=== PATIENT | female | born 1965 | race Caucasian/White ===

== ENCOUNTER 2017-03-08 10:29 | Emergency (ER) | payer OTHER, BC ==
[2017-03-08 10:34] VITALS: BMI 30.7
[2017-03-08 10:36] VITALS: BP 161/91; PULSE 79; RESP 17; TEMP 98.3; O2SAT 99
--- NOTE | 2017-03-08 11:12 | ED PDOC ---
Upper Extremity Pain/Injury Time Seen by Provider: 03/08/17 10:35 Chief Complaint (Nursing): Upper Extremity Problem/Injury Chief Complaint (Provider): Right shoulder pain, 1-2 week, worse x 2 days History Per: Patient History/Exam Limitations: no limitations Onset/Duration Of Symptoms: Days Current Symptoms Are (Timing): Still Present Quality: Sharp (with movements across body and over head ) Exacerbating Factor(s): Strenuous Use Of Affected Area, Movement Additional Complaint(s): PT has not been taking medications for pain at home. No numbness/tingling. Pt states she is having trouble sleeping because she can't sleep on that side nad has difficulty moving. Past Medical History Reviewed: Historical Data, Nursing Documentation, Vital Signs Vital Signs: Last Vital Signs Temp 98.3 F 03/08/17 10:34 Pulse 79 03/08/17 10:34 Resp 17 03/08/17 10:34 BP 161/91 H 03/08/17 10:34 Pulse Ox 99 03/08/17 10:34 - Medical History PMH: Diabetes, HTN - Surgical History Surgical History: No Surg Hx - Family History Family History: States: No Known Family Hx - Living Arrangements Living Arrangements: With Family - Social History Current smoker - smoking cessation education provided: No - Home Medications Home Medications: Ambulatory Orders Medication Instructions Recorded Acetaminophen/Oxycodone Hydr 1 tab PO Q6H #0 10 10/22/13 [Percocet 325 mg-5 mg] Ciprofloxacin HCl [Cipro] 500 mg PO BID #20 tab 10/22/13 Tamsulosin [Flomax] 0.4 mg PO DAILY #6 cap 10/22/13 Acetaminophen/Hydrocodone Bi 1 tab PO QID PRN #10 tab 10/11/14 [Vicodin 300 mg-5 mg] Clindamycin [Cleocin] 300 mg PO QID 10 Days cap 10/11/14 Naproxen [Naprosyn] 500 mg PO Q12H #20 tab 02/20/15 Sulfamethoxazole/Trimethoprim 1 tab PO BID #20 tab 02/20/15 [Bactrim DS 800 mg-160 mg] Naproxen [Naprosyn] 500 mg PO BID PRN #20 tablet 03/08/17 - Allergies Allergies/Adverse Reactions: Allergies Allergy/AdvReac Type Severity Reaction Status Date / Time No Known Allergies Allergy Verified 03/08/17 10:42 Review of Systems ROS Statement: Except As Marked, All Systems Reviewed And Found Negative Constitutional: Negative for: Fever, Chills Cardiovascular: Negative for: Chest Pain Respiratory: Negative for: Cough, Shortness of Breath Musculoskeletal: Positive for: Shoulder Pain (Right ) Physical Exam - Reviewed Nursing Documentation Reviewed: Yes Vital Signs Reviewed: Yes - Physical Exam Appears: Positive for: Well, Non-toxic, No Acute Distress Head Exam: Positive for: ATRAUMATIC, NORMAL INSPECTION, NORMOCEPHALIC Skin: Positive for: Normal Color, Warm, DRY Eye Exam: Positive for: Normal appearance ENT: Positive for: Normal ENT Inspection Neck: Positive for: Normal. Negative for: Pain On Movement Of Neck Respiratory: Negative for: Accessory Muscle Use, Respiratory Distress Pulses-Radial (R): 2+ Back: Positive for: Normal Inspection Extremity: Negative for: Normal ROM (Limited extension, internal rotation), Tenderness Neurologic/Psych: Positive for: Alert, Oriented - ECG O2 Sat by Pulse Oximetry: 99 Pulse Ox Interpretation: Normal Medical Decision Making Medical Decision Making: No acute fracture or dislocation Disposition - Clinical Impression Clinical Impression: Tendonitis of shoulder, right - Patient ED Disposition Is Patient to be Admitted: No Counseled Patient/Family Regarding: Diagnosis, Need For Followup, Rx Given - Disposition Referrals: Malik Hinds III, MD [Staff Provider] - Disposition: Routine/Home Disposition Time: 12:39 Condition: GOOD Prescriptions: Naproxen [Naprosyn] 500 mg PO BID PRN #20 tablet PRN Reason: Pain Instructions: Tendinitis (ED) Forms: [email or web address] [facility] ([place]), [facility] ED School/Work Excuse
[2017-03-08] MEDS ORDERED: Naproxen 500 MG TAB PO STA (11:28)
[2017-03-08] MEDS ORDERED: Naproxen 500 MG TAB PO ONE (11:38)
--- NOTE | 2017-03-08 12:52 | RAD ---
PROCEDURE: Radiographs of the Right Shoulder HISTORY: right shoulder pain, 2 days COMPARISON: No prior. FINDINGS: BONES: Normal. No fracture. JOINTS: Normal. Glenohumeral and acromioclavicular joints preserved. No osteoarthritis. SOFT TISSUES: Normal. OTHER FINDINGS: None. IMPRESSION: Unremarkable radiographs of the right shoulder.
== END 2017-03-08 12:45 | disposition home or self-care (01) ==
LOC: H.ER 10:29
DX: M25.511 Pain in right shoulder (principal); E11.9 Type 2 diabetes mellitus without complications; I10 Essential (primary) hypertension; M75.91 Shoulder lesion, unspecified, right shoulder

== ENCOUNTER 2017-08-20 13:37 | Emergency (ER) | payer OTHER ==
[2017-08-20 13:37] VITALS: BMI 30.7
[2017-08-20 13:42] VITALS: BP 105/72; PULSE 87; RESP 16; TEMP 97.6; O2SAT 99
[2017-08-20] MEDS ORDERED: Tdap Vaccine 0.5 ml Vial (10-64 yrs) IM ONE ×2 (13:53→14:06)
--- NOTE | 2017-08-20 14:08 | ED PDOC ---
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 She reports that while walking in the door to a room, she got caught on a chair , hit her upper back on the edge of the door, and then fell on her right knee, sustaining an abrasion. Patient states that a nurse on the floor advised her to make sure she's up to date on her tetanus shot. PMD: Joaquín Mohan Past Medical History Reviewed: Historical Data, Nursing Documentation, Vital Signs Vital Signs: Last Vital Signs Temp 97.6 F 08/20/17 13:40 Pulse 87 08/20/17 13:40 Resp 16 08/20/17 13:40 BP 105/72 08/20/17 13:40 Pulse Ox 99 08/20/17 13:40 - Medical History PMH: Diabetes, HTN - Surgical History Surgical History: Hernia Repair Other surgeries: tummy tuck; left shoulder surgery - Family History Family History: States: Unknown Family Hx - Social History Ex-Smoker (has not smoked in the last 12 months): Yes Drugs: Denies - Immunization History Hx Tetanus Toxoid Vaccination: No - Home Medications Home Medications: Ambulatory Orders Medication Instructions Recorded Acetaminophen/Oxycodone Hydr 1 tab PO Q6H #0 10 10/22/13 [Percocet 325 mg-5 mg] Ciprofloxacin HCl [Cipro] 500 mg PO BID #20 tab 10/22/13 Tamsulosin [Flomax] 0.4 mg PO DAILY #6 cap 10/22/13 Acetaminophen/Hydrocodone Bi 1 tab PO QID PRN #10 tab 10/11/14 [Vicodin 300 mg-5 mg] Clindamycin [Cleocin] 300 mg PO QID 10 Days cap 10/11/14 Naproxen [Naprosyn] 500 mg PO Q12H #20 tab 02/20/15 Sulfamethoxazole/Trimethoprim 1 tab PO BID #20 tab 02/20/15 [Bactrim DS 800 mg-160 mg] Naproxen [Naprosyn] 500 mg PO BID PRN #20 tablet 03/08/17 - Allergies Allergies/Adverse Reactions: Allergies Allergy/AdvReac Type Severity Reaction Status Date / Time No Known Allergies Allergy Verified 08/20/17 13:40 Review of Systems ROS Statement: Except As Marked, All Systems Reviewed And Found Negative Musculoskeletal: Positive for: Back Pain (upper right), Leg Pain (right knee) Skin: Positive for: Other (abrasion to right knee) Physical Exam - Reviewed Nursing Documentation Reviewed: Yes Vital Signs Reviewed: Yes - Physical Exam Appears: Positive for: No Acute Distress Head Exam: Positive for: ATRAUMATIC, NORMOCEPHALIC Skin: Positive for: Normal Color, Warm, Dry Eye Exam: Positive for: Normal appearance ENT: Positive for: Normal ENT Inspection Neck: Positive for: Normal Cardiovascular/Chest: Positive for: Regular Rate, Rhythm. Negative for: Murmur Respiratory: Positive for: Normal Breath Sounds. Negative for: Accessory Muscle Use, Respiratory Distress Back: Positive for: Other (tenderness between spine and scapula of soft tissue, no ecchymosis) Extremity: Positive for: Normal ROM (of right knee and leg, ambulating on it), Other (abrasion to right knee). Negative for: Swelling (to right knee) Neurologic/Psych: Positive for: Alert, Oriented (x3). Negative for: Motor/ Sensory Deficits - ECG O2 Sat by Pulse Oximetry: 99 (RA) Pulse Ox Interpretation: Normal Medical Decision Making Medical Decision Making: Initial Impression: upper back and right knee pain s/p fall Time: 13:53 Initial Plan: --Tetanus 0.5ml IM Wound irrigated, antibiotic ointment and dressing applied. Scribe Attestation Documented by Lisa Tony acting as a scribe for Shoshana Wilks PA-C. Provider Attestation All medical record entries made by the Scribe were at my direction and personally dictated by me. I have reviewed the chart and agree that the record accurately reflects my personal performance of the history, physical exam, medical decision making, and the department course for this patient. I have also personally directed, reviewed, and agree with the discharge instructions and disposition. Disposition - Clinical Impression Clinical Impression: Knee abrasion, Upper back pain - Patient ED Disposition Is Patient to be Admitted: No Counseled Patient/Family Regarding: Diagnosis, Need For Followup - Disposition Referrals: Joaquín Mohan MD [Family Provider] - Disposition: Routine/Home Disposition Time: 14:25 Condition: STABLE Instructions: Skin Abrasions Forms: [facility] ([place])
== END 2017-08-20 14:32 | disposition home or self-care (01) ==
LOC: H.ER 13:37
DX: S80.211A Abrasion, right knee, initial encounter (principal); M54.9 Dorsalgia, unspecified; W19.XXXA Unspecified fall, initial encounter; Y99.0 Civilian activity done for income or pay; E11.9 Type 2 diabetes mellitus without complications; I10 Essential (primary) hypertension

== ENCOUNTER 2018-01-17 12:28 | Emergency (ER) | payer OTHER ==
[2018-01-17 12:28] VITALS: BMI 30.7
[2018-01-17 12:33] VITALS: RESP 16
[2018-01-17] MEDS ORDERED: Tdap Vaccine 0.5 ml Vial (10-64 yrs) IM ONE ×2 (13:20→13:25)
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
--- NOTE | 2018-01-17 15:10 | CT ---
Date of service: 01/17/2018 PROCEDURE: CT MAXILLOFACIAL BONES WITHOUT CONTRAST HISTORY: r/o fx COMPARISON: None available. TECHNIQUE: Contiguous axial CT images of the maxillofacial bones were obtained. Coronal and sagittal reformats were generated. Radiation dose: Total exam DLP = 1216.41 mGy-cm. This CT exam was performed using one or more of the following dose reduction techniques: Automated exposure control, adjustment of the mA and/or kV according to patient size, and/or use of iterative reconstruction technique. FINDINGS: NASAL BONES: Unremarkable. ORBITS: Unremarkable. PARANASAL SINUSES/ MASTOIDS: Clear. MAXILLA: Unremarkable. MANDIBLE/ TEMPOROMANDIBULAR JOINTS: Unremarkable. SKULL BASE: Unremarkable. TEMPORAL BONES: Middle ears and mastoid grossly unremarkable. OTHER FINDINGS: None. IMPRESSION: Unremarkable non contrast enhanced CT of the maxillofacial bones.
--- NOTE | 2018-01-17 16:24 | ED PDOC ---
HPI: Trauma/Fall - HPI Time Seen by Provider: 01/17/18 13:15 Chief Complaint (Nursing): Abnormal Skin Integrity Chief Complaint (Provider): Facial Laceration History Per: Patient History/Exam Limitations: no limitations Onset/Duration Of Symptoms: Hrs (two) Description Of Injury (Context): Pt suffered apparent vasovagal while pressing on the toilet, lost conscious - Fall Fall:Prior To Injury: Passed Out (Pt suffered apparent vasovagal while pressing on the toilet, lost consciousness and fell forward striking her face on the [facility] [place]. Pt suffered a 4-5 inch moerately deep laceration over the right eye and nose. Bleeding is undercontrol and the patient is hemodynamically stable) Past Medical History Reviewed: Historical Data, Nursing Documentation, Vital Signs Vital Signs: Last Vital Signs Temp 97.0 F L 01/17/18 12:30 Pulse 88 01/17/18 12:30 Resp 16 01/17/18 12:30 BP 128/82 01/17/18 12:30 Pulse Ox 100 01/17/18 12:30 - Medical History PMH: Diabetes, HTN - Surgical History Surgical History: Hernia Repair Denies: No Surg Hx Other surgeries: Pt had left shoulder surgery in the last two months of unknown origin - Family History Family History: States: Unknown Family Hx - Living Arrangements Living Arrangements: With Family - Immunization History Hx Tetanus Toxoid Vaccination: No - Home Medications Home Medications: Ambulatory Orders Medication Instructions Recorded Acetaminophen/Oxycodone Hydr 1 tab PO Q6H #0 10 10/22/13 [Percocet 325 mg-5 mg] Ciprofloxacin HCl [Cipro] 500 mg PO BID #20 tab 10/22/13 Tamsulosin [Flomax] 0.4 mg PO DAILY #6 cap 10/22/13 Acetaminophen/Hydrocodone Bi 1 tab PO QID PRN #10 tab 10/11/14 [Vicodin 300 mg-5 mg] Clindamycin [Cleocin] 300 mg PO QID 10 Days cap 10/11/14 Naproxen [Naprosyn] 500 mg PO Q12H #20 tab 02/20/15 Sulfamethoxazole/Trimethoprim 1 tab PO BID #20 tab 02/20/15 [Bactrim DS 800 mg-160 mg] Naproxen [Naprosyn] 500 mg PO BID PRN #20 tablet 03/08/17 Cephalexin [Keflex] 500 mg PO QID #40 capsule 01/17/18 - Allergies Allergies/Adverse Reactions: Allergies Allergy/AdvReac Type Severity Reaction Status Date / Time No Known Allergies Allergy Verified 01/17/18 12:30 Review of Systems Constitutional: Negative for: Fever, Chills, Sweats Eyes: Positive for: Pain, Eyelid Inflammation, Redness. Negative for: Vision Change, Conjunctivae Inflammation Skin: Positive for: Bruising, Other (laceration measuring 4-5 inches, vertically oriented over the right eye and nose) Physical Exam - Reviewed Nursing Documentation Reviewed: Yes Vital Signs Reviewed: Yes - Physical Exam Appears: Positive for: Well, Uncomfortable, In Acute Distress Head Exam: Positive for: NORMAL INSPECTION. Negative for: ATRAUMATIC Skin: Positive for: Normal Color (see ROS; vertical laceration over the right eye and nose) Eye Exam: Positive for: Normal appearance, EOMI, PERRL, Periorbital swelling, Periorbital tenderness, Other (there is no apparent entrapment). Negative for: Nystagmus, Conjunctival injection, Scleral icterus Neck: Positive for: Normal, Painless ROM, Supple. Negative for: Decreased ROM Cardiovascular/Chest: Positive for: Regular Rate, Rhythm. Negative for: Edema, Gallop, Bradycardia, Tachycardia Respiratory: Positive for: Normal Breath Sounds. Negative for: Decreased Breath Sounds, Accessory Muscle Use, Crackles, Rales, Rhonchi, Stridor, Wheezing, Respiratory Distress Pulses-Carotid (L): 2+ Pulses-Carotid (R): 2+ Pulses-Radial (L): 2+ Pulses-Radial (R): 2+ - ECG ECG: Positive for: Interpreted By Me ECG Rhythm: Positive for: Normal QRS, Normal ST Segment, Sinus Rhythm O2 Sat by Pulse Oximetry: 100 Medical Decision Making Medical Decision Making: Dr De Santiago consulted and arrived bedside to repair the laceration Pt will follow up with Dr De Santiago in the office on Friday; keflex qid 500mg Disposition - Clinical Impression Clinical Impression: Facial laceration - Patient ED Disposition Is Patient to be Admitted: No Discussed With : Gertrudis De Santiago Comment: Pt will follow up with Dr De Santiago in the office this week Doctor Will See Patient In The: Office - Disposition Referrals: Gertrudis De Santiago MD [Medical Doctor] - Disposition: Routine/Home Disposition Time: 16:30 Condition: STABLE Prescriptions: Cephalexin [Keflex] 500 mg PO QID #40 capsule Instructions: Laceration Repair, Laceration Repair With Stitches (DC)
[2018-01-17 16:54] VITALS: BP 120/70; PULSE 78; TEMP 98; O2SAT 98
--- NOTE | 2018-01-18 22:07 | CARD ---
APPROVED REPORT Date of service: 01/17/2018 EKG Measurement Heart [id number] <Conclusion> Normal sinus rhythm Normal ECG
== END 2018-01-17 16:54 | disposition home or self-care (01) ==
LOC: H.ER 12:28
DX: S01.81XA Laceration without foreign body of other part of head, initial encounter (principal); S01.111A Laceration without foreign body of right eyelid and periocular area, initial encounter; I10 Essential (primary) hypertension; E11.9 Type 2 diabetes mellitus without complications; W01.198A Fall on same level from slipping, tripping and stumbling with subsequent striking against other object, initial encounter; Y92.002 Bathroom of unspecified non-institutional (private) residence as the place of occurrence of the external cause; Z23 Encounter for immunization